=== PATIENT | female | born 1960 | race African-American/Black ===

== ENCOUNTER 2024-02-22 15:01 | Emergency (ER) | payer BC ==
[2024-02-22] MEDS ORDERED: Ketorolac Tromethamine 30 MG (1 mL) VIAL ONE (15:56)
== END 2024-02-22 16:15 | disposition home or self-care (01) ==
LOC: ERS 15:01
DX: M54.42 Lumbago with sciatica, left side (principal)
CPT/HCPCS: 96372; 99283; J1885